=== PATIENT | male | born 1970 | race Two or more races ===

== ENCOUNTER 2021-08-11 09:41 | Emergency (ER) | payer MEDICAID, OTHER ==
[~2021-08-11] VITALS: Ht 167.6 cm; Wt 61.2 kg
[2021-08-11 11:13] VITALS: BP 129/94
[2021-08-11] MEDS ORDERED: IBUP800T27 PO (11:39)
[2021-08-11] MEDS ORDERED: SULF400T11 PO (11:39)
[2021-08-11] MEDS ORDERED: HYDROcodone-ACET 5/325MG TAB PO ONE (11:45)
== END 2021-08-11 12:00 | disposition home or self-care (01) ==
LOC: ER 09:41
DX: L02.413 Cutaneous abscess of right upper limb (principal); F17.210 Nicotine dependence, cigarettes, uncomplicated; F15.10 Other stimulant abuse, uncomplicated; F41.9 Anxiety disorder, unspecified
CPT/HCPCS: 10060